=== PATIENT | female | born 1995 | race American Indian/Alaskan Native ===

== ENCOUNTER 2021-09-27 12:59 | Emergency (ER) | payer SELFPAY ==
[2021-09-27 15:02] VITALS: BP 123/57
--- NOTE | 2021-09-27 15:34 | XRay Report ---
CHEST 2 VIEWS INDICATION: Chest Pain. COMPARISON: None. FINDINGS: Support devices: None. Heart: Within normal limits. Lungs/Pleura: No acute air space or interstitial disease. No significant pleural effusion. IMPRESSION: No acute findings. Signer Name: Adrián Feldman MD Signed: 09/27/2021 3:30 PM Workstation Name: [id number]
[2021-09-27 15:50] LABS: Basophils # (Auto) 0.1 K/mm3 (0.0-0.1); Basophils % (Auto) 1.2 % (0.0-1.8); Eosinophils # (Auto) 0.3 K/mm3 (0.0-0.4); Eosinophils % (Auto) 3.7 % (0.0-4.3); Hematocrit 38.5 % (30.3-42.9); Hemoglobin 12.2 gm/dl (10.1-14.3); Lymphocytes # (Auto) 2.5 K/mm3 (1.2-5.4); Mean Corpuscular HGB Conc 32 % (30-34); Mean Corpuscular Volume 76 fl (79-97); Monocytes # (Auto) 0.8 K/mm3 (0.0-0.8); Monocytes % (Auto) 10.4 % (0.0-7.3); Platelet Count 273 K/mm3 (140-440); Red Blood Count 5.06 M/mm3 (3.65-5.03); Red Cell Distribution Width 16.4 % (13.2-15.2)
[2021-09-27 15:56] LABS: INR 0.9 (0.87-1.13)
[2021-09-27 15:57] LABS: Partial Thromboplastin Time 32.2 Sec. (24.2-36.6)
[2021-09-27 16:11] LABS: Alanine Aminotransferase 11 units/L (7-56); Albumin 4.2 g/dL (3.9-5); BUN/Creatinine Ratio 18; Blood Urea Nitrogen 14 mg/dL (7-17); Calcium 9.7 mg/dL (8.4-10.2); Hemolysis Index 1
--- NOTE | 2021-09-27 17:43 | Emergency Department Report ---
ED General Adult HPI - General Chief complaint: Chest Pain Stated complaint: CHEST PAIN Time Seen by Provider: 09/27/21 16:12 Source: patient Mode of arrival: Ambulatory Limitations: No Limitations - History of Present Illness Initial comments: Patient presents with complaints of left-sided chest pain intermittently for the past year. She states her current episode has been ongoing for the past 2 weeks. Patient states she has been evaluated in the ED prior and has not had any abnormal findings. Patient states pain seems to occur after lifting heavy objects at work. She has not tried any OTC medications for symptoms. She denies any past heart history or family heart history, shortness of breath, cough, leg pain/swelling, hemoptysis, hormone use, recent long travel, or history of DVT/PE/cancer. Severity scale (0 -10): 9 Quality: stabbing Consistency: intermittent - Related Data Previous Rx's Medication Instructions Recorded Last Taken Type Naproxen [EC-Naprosyn] 500 mg PO BID PRN #30 tab 09/27/21 Unknown Rx Allergies Allergy/AdvReac Type Severity Reaction Status Date / Time No Known Allergies Allergy Verified 09/27/21 15:02 ED Review of Systems ROS: Stated complaint: CHEST PAIN Other details as noted in HPI Constitutional: denies: chills, fever Respiratory: denies: cough, shortness of breath Cardiovascular: as per HPI. denies: palpitations, dyspnea on exertion, edema, syncope Gastrointestinal: denies: abdominal pain Musculoskeletal: denies: back pain Hematological/Lymphatic: denies: swollen glands ED Past Medical Hx - Medications Home Medications: Home Medications Medication Instructions Recorded Confirmed Last Taken Type Naproxen [EC-Naprosyn] 500 mg PO BID PRN #30 tab 09/27/21 Unknown Rx ED Physical Exam - General Limitations: No Limitations General appearance: alert, in no apparent distress - Head Head exam: Present: atraumatic, normocephalic - Eye Eye exam: Present: normal appearance. Absent: scleral icterus - Respiratory Respiratory exam: Present: normal lung sounds bilaterally, chest wall tenderness (Left parasternal). Absent: respiratory distress - Cardiovascular Cardiovascular Exam: Present: regular rate, normal rhythm - Extremities Exam Extremities exam: Absent: calf tenderness (No tenderness noted bilaterally to lower legs or swelling noted) - Neurological Exam Neurological exam: Present: alert, oriented X3, normal gait - Psychiatric Psychiatric exam: Present: normal affect, normal mood ED Course Vital Signs 09/27/21 14:59 Temperature 97.4 F L Pulse Rate 54 L Respiratory 16 Rate Blood Pressure 123/57 [Left] O2 Sat by Pulse 99 Oximetry ED Medical Decision Making - Lab Data Result diagrams: 09/27/21 15:21 09/27/21 15:21 Lab Results 09/27/21 09/27/21 09/27/21 Range/Units 15:21 15:21 15:21 WBC 7.8 (4.5-11.0) K/mm3 RBC 5.06 H (3.65-5.03) M/mm3 Hgb 12.2 (10.1-14.3) gm/dl Hct 38.5 (30.3-42.9) % MCV 76 L (79-97) fl MCH 24 L (28-32) pg MCHC 32 (30-34) % RDW 16.4 H (13.2-15.2) % Plt Count 273 (140-440) K/mm3 Lymph % (Auto) 32.0 (13.4-35.0) % [place] % (Auto) 10.4 H (0.0-7.3) % Eos % (Auto) 3.7 (0.0-4.3) % Baso % (Auto) 1.2 (0.0-1.8) % Lymph # (Auto) 2.5 (1.2-5.4) K/mm3 [place] # (Auto) 0.8 (0.0-0.8) K/mm3 Eos # (Auto) 0.3 (0.0-0.4) K/mm3 Baso # (Auto) 0.1 (0.0-0.1) K/mm3 Seg Neutrophils % 52.7 (40.0-70.0) % Seg Neutrophils # 4.1 (1.8-7.7) K/mm3 PT 13.1 (12.2-14.9) Sec. INR 0.90 (0.87-1.13) APTT 32.2 (24.2-36.6) Sec. Sodium 140 (137-145) mmol/L Potassium 4.7 (3.6-5.0) mmol/L Chloride 105.2 (98-107) mmol/L Carbon Dioxide 22 (22-30) mmol/L Anion Gap 18 mmol/L BUN 14 (7-17) mg/dL Creatinine 0.8 (0.6-1.2) mg/dL Estimated GFR > 60 ml/min BUN/Creatinine Ratio 18 % Glucose 89 (65-100) mg/dL Calcium 9.7 (8.4-10.2) mg/dL Total Bilirubin 0.20 (0.1-1.2) mg/dL AST 12 (5-40) units/L ALT 11 (7-56) units/L Alkaline Phosphatase 70 (35-129) units/L Troponin T < 0.010 (0.00-0.029) ng/mL Total Protein 7.2 (6.3-8.2) g/dL Albumin 4.2 (3.9-5) g/dL Albumin/Globulin Ratio 1.4 % Lipase 35 (13-60) units/L - EKG Data Rate: bradycardia - EKG Data Interpretation: normal EKG - Radiology Data Radiology results: report reviewed CHEST 2 VIEWS INDICATION: Chest Pain. COMPARISON: None. FINDINGS: Support devices: None. Heart: Within normal limits. Lungs/Pleura: No acute air space or interstitial disease. No significant pleural effusion. IMPRESSION: No acute findings. - Medical Decision Making Patient presents with complaints of left-sided chest pain intermittently for the past year. She states her current episode has been ongoing for the past 2 weeks. Patient states she has been evaluated in the ED prior and has not had any abnormal findings. Patient states pain seems to occur after lifting heavy objects at work. She has not tried any OTC medications for symptoms. She denies any past heart history or family heart history, shortness of breath, cough, leg pain/swelling, hemoptysis, hormone use, recent long travel, or hi story of DVT/PE/cancer. PERC score = 0. No acute abnormalities noted on chest x-ray or EKG. Tenderness is palpable in the area of patient's pain. Suspect costochondritis given history and chronicity of pain. Will treat with NSAIDs, however I do recommend patient follows up with primary care and cardiology for further evaluation. She is otherwise well-appearing and stable for discharge home. Strict return precautions were discussed in detail patient who verbalizes understanding Critical care attestation.: If time is entered above; I have spent that time in minutes in the direct care of this critically ill patient, excluding procedure time. ED Disposition Clinical Impression: Other chest pain Disposition: HOME / SELF CARE / HOMELESS Is pt being admited?: No Condition: Stable Instructions: Costochondritis, [id number] Prescriptions: Naproxen [EC-Naprosyn] 500 mg PO BID PRN #30 tab PRN Reason: pain Referrals: [facility] [Provider Group] - 3-5 Days ELLIS MANZANO MD [Staff Physician] - 3-5 Days Forms: Work/School Release Form(ED)
== END 2021-09-27 20:00 | disposition home or self-care (01) ==
LOC: ED 12:59
DX: R07.9 Chest pain, unspecified (principal)
CPT/HCPCS: 36415; 71046; 80053; 83690; 84484; 85025; 85610; 85730; 93005; 99283